=== PATIENT | female | born 1935 | race Caucasian/White ===

== ENCOUNTER 2016-09-20 10:33 | Day surgery (SDC) | payer MEDICARE, BC ==
--- NOTE | ~2016-09-20 | EGD ---
EGD REPORT [facility] [address] [address] NAME: SAMANTHA CAMERON : [birth year] STATUS : REG [facility] PAT#: [id number] AGE: 80 ADM/REG DATE : 09/20/16 MR#: [id number] REPORT SERV DATE: 09/20/16 DICTATED BY: FRIDA GASPAR DATE: 09/20/16 REPORT STATUS : Draft TRANSCRIBED BY: [employer] DATE: 09/20/16 [facility] Patient Name: Samantha Cameron Date of : 1935 Attending MD: FRIDA GASPAR MD Procedure Date No Time: 09/20/2016 Procedure: Upper GI endoscopy Indications: Dysphagia Referring MD: BISI NEUMANN MD Medicines: as per anesthesia Complications: No immediate complications. Procedure: Pre-Anesthesia Assessment: - ASA Grade Assessment: III - A patient with severe systemic disease. After obtaining informed consent, the endoscope was passed under direct vision. Throughout the procedure, the patient's blood pressure, pulse, and oxygen saturations were monitored continuously. The GIF [id number] was introduced through the mouth, and advanced to the third part of duodenum. The upper GI endoscopy was accomplished without difficulty. The patient tolerated the procedure. Findings: A benign-appearing, intrinsic severe stenosis was found in the lower third of the esophagus and was traversed. A guidewire was placed under fluoroscopic guidance and the scope was withdrawn. Dilation was performed with a Savary dilator with no resistance at 33 Fr, no resistance at 36 Fr and no resistance at 38 Fr. Multiple sessile polyps were found in the gastric body. The cardia and gastric fundus were normal on retroflexion. The examined duodenum was normal. Impression: - Benign-appearing esophageal stricture. Dilated. - Multiple gastric polyps. - Normal examined duodenum. Recommendation: - Continue present medications. - Clear liquid diet today. - Full liquid diet for 1 day. - Soft diet. Procedure Code(s): --- Professional --- 69485, Esophagogastroduodenoscopy, flexible, transoral; with insertion of guide wire followed by passage of EGD REPORT [address] [address] NAME: SAMANTHA CAMERON DEE : 31 STATUS : REG [facility] PAT#: [id number] AGE: 80 ADM/REG DATE : 09/20/16 MR#: [id number] REPORT SERV DATE: 09/20/16 DICTATED BY: FRIDA GASPAR DATE: 09/20/16 REPORT STATUS : Draft TRANSCRIBED BY: [employer] ([employer] DATE: 09/20/16 dilator(s) through esophagus over guide wire Diagnosis Code(s): --- Professional --- K22.2, Esophageal obstruction K31.7, Polyp of stomach and duodenum R13.10, Dysphagia, unspecified CPT copyright 2013 [employer]. All rights reserved. The codes documented in this report are preliminary and upon detective investigator review may be revised to meet current compliance requirements. FRIDA GASPAR MD 09/20/2016 2:41 PM This report has been signed electronically. Number of Addenda: 0 Note Initiated On: 09/20/2016 1:26 PM Scope Withdrawal Time 0 hours 0 minutes 0 seconds
[~2016-09-20 10:33] MED LIST: ASAB PO; B121000P SC; BETAPACE80 PO; C2 PO; C25 PO; COUMADIN3 MG PO; COZ25 PO; DURA50 TOP; ENDOCET1 TA3 PO; K250 PO; KADIAN PO; KADIANSR30 PO; KAPIDEX60 MG PO; KLONO5 PO; KLOR-CON M1010 MEQ PO; L20 PO; LIPITOR40 PO; LYRICA75 PO; MAGOX4 PO; MEDS; MINITRAN0.2 MG/HR TOP; MIRALAXPKT PO; MSCONT15 PO; NITROSTAT0.4 MG SL; OXYCOD PO; PERCODAN PO; ROXICODONE15 MG PO; TRICOR145 PO; VITD PO
[2016-09-20 11:02] LABS: INTERNATIONAL NORMAL RATI 1.7 UNITS (-); PROTIME (NOT ORD) 19.4 SEC (12.0-14.5)
== END 2016-09-20 23:59 | disposition home or self-care (01) ==
LOC: DMU 10:33
PROVIDERS: Anesthesiology; Internal Medicine Gastroenterology
PROC: 0D738ZZ Dilation of Lower Esophagus, Via Natural or Artificial Opening Endoscopic (ICD-10-PCS; principal; 2016-09-20 12:00)
DX: K22.2 Esophageal obstruction (principal); K31.7 Polyp of stomach and duodenum; K21.9 Gastro-esophageal reflux disease without esophagitis; K29.70 Gastritis, unspecified, without bleeding; I48.91 Unspecified atrial fibrillation; I12.9 Hypertensive chronic kidney disease with stage 1 through stage 4 chronic kidney disease, or unspecified chronic kidney disease; N18.3 Chronic kidney disease, stage 3 (moderate); E78.00 Pure hypercholesterolemia, unspecified; E78.5 Hyperlipidemia, unspecified; G89.29 Other chronic pain; M19.90 Unspecified osteoarthritis, unspecified site; Z88.8 Allergy status to other drugs, medicaments and biological substances; Z87.891 Personal history of nicotine dependence; Z95.0 Presence of cardiac pacemaker; Z96.1 Presence of intraocular lens; Z98.41 Cataract extraction status, right eye; Z98.42 Cataract extraction status, left eye; Z90.49 Acquired absence of other specified parts of digestive tract; Z90.710 Acquired absence of both cervix and uterus; Z79.01 Long term (current) use of anticoagulants; Z79.891 Long term (current) use of opiate analgesic; Z79.899 Other long term (current) drug therapy; Z98.890 Other specified postprocedural states
CPT/HCPCS: 76000; 85610